=== PATIENT | female | born 1970 | race Caucasian/White ===

== ENCOUNTER 2018-04-29 16:33 | Emergency (ER) | payer OTHER ==
[~2018-04-29] VITALS: Ht 162.6 cm; Wt 98.3 kg
[~2018-04-29 16:33] MED LIST: ATIVAN1 MG PO; BACTRIM,SEPT1 TABLET PO; KEFLEX500 MG PO; LAMICTAL200 MG PO; LITHIUM CARBON300 MG PO; MOTRIN600 MG PO; MOTRIN800 MG PO; NAPROSYN500 MG PO; TAMIFLU75 MG PO; TYLENOL EXTRA500 MG PO
[2018-04-29 17:06] LABS: HEMOGLOBIN 14.9 G/DL (11.9-15.5); MCH 29.4 PG (29.0-34.0); MCHC 34.7 G/DL (30.0-36.0); PLATELET COUNT 262 K/uL (156-360); RBC DIS.WIDTH-CV 13.6 % (11.8-14.6); RBC DIS.WIDTH-SD 42.2 % (39-53); RED BLOOD COUNT 5.06 M/uL (3.80-5.20)
[2018-04-29 17:15] LABS: ALBUMIN 4.2 g/dL (3.2-4.8)
[2018-04-29 17:16] LABS: CHLORIDE 104 mEq/L (99-109); SODIUM 138 mEq/L (136-147)
[2018-04-29 17:18] LABS: GLUCOSE 111 mg/dL (70-99); TOTAL PROTEIN 7.7 g/dL (6.4-8.3)
[2018-04-29 17:20] LABS: TOTAL BILIRUBIN 0.2 mg/dL (0.0-1.0)
[2018-04-29 17:21] LABS: ALKALINE PHOSPHATASE 78 IU/L (3-129)
[2018-04-29 17:22] LABS: CREATININE 0.9 mg/dL (0.6-1.3); GFR ESTIMATE (CALCULATED) > 59 mL/min/
[2018-04-29 17:23] LABS: AST (GOT) 22 IU/L (2-34); UREA NITROGEN (BUN) 13 mg/dL (9-23)
[2018-04-29 17:24] LABS: ALT (GPT) 29 IU/L (3-49)
[2018-04-29 17:25] LABS: LIPASE 52 U/L (1.0-51.0)
[2018-04-29 17:26] LABS: TROP-I INTERPRETATION NEGATIVE; TROPONIN-I < 0.01 ng/mL (0.0-0.30)
[2018-04-29] MEDS ORDERED: NAPROXEN500 MG PO (17:34)
[2018-04-29 17:40] VITALS: BP 120/78
== END 2018-04-29 17:42 | disposition home or self-care (01) ==
LOC: EME 16:33
PROVIDERS: Physician Assistant
DX: R07.89 Other chest pain (principal); F41.9 Anxiety disorder, unspecified; F32.9 Major depressive disorder, single episode, unspecified; F31.9 Bipolar disorder, unspecified; F17.200 Nicotine dependence, unspecified, uncomplicated; Z86.79 Personal history of other diseases of the circulatory system; Z91.5 Personal history of self-harm; Z98.890 Other specified postprocedural states; Z90.711 Acquired absence of uterus with remaining cervical stump; Z88.5 Allergy status to narcotic agent; Z88.4 Allergy status to anesthetic agent
CPT/HCPCS: 71046; 80053; 83690; 84484; 85027; 93005; 99281; 99283